=== PATIENT | male | born 1980 | race Caucasian/White ===

== ENCOUNTER 2020-08-01 11:52 | Inpatient (IN) | payer MEDICAID ==
[~2020-08-01] VITALS: Ht 182.9 cm; Wt 101.4 kg
[2020-08-01] MEDS ORDERED: acetaminophen 325mg tablet PO PRN (14:10)
[2020-08-01] MEDS ORDERED: magnesium hydroxide 30ml (MOM) UD suspension PO PRN (14:10)
[2020-08-01] MEDS ORDERED: mag hydrox/Alum hydrox/simeth 30ml oral suspension PO PRN (14:10)
[2020-08-01] MEDS ORDERED: loperamide 2mg capsule PO PRN (14:10)
[2020-08-01 15:00] VITALS: BP 137/83
[2020-08-01] MEDS ORDERED: CEPH-572 PO (15:40)
[2020-08-01] MEDS ORDERED: CLON-527 PO (15:40)
[2020-08-01] MEDS ORDERED: OLAN20TA3 PO (15:40)
[2020-08-01] MEDS ORDERED: BUPR150T8 PO (15:55)
--- NOTE | 2020-08-01 16:00 | NUR ---
Admission note: [facility] for DTS at 1555 from [facility]. Pt overdosed on Klonopin so that he could and not have to deal with things anymore. Pt complains of voices and audio hallucinations. Pt was traveling on his way to [place]. Pt has a history of schizophrenia, and fibromyalgia.
[2020-08-01] MEDS: LORazepam 1 MG tablet PO PRN (16:34)
[2020-08-01] MEDS: NICOTINE POLACRILEX 2 MG LOZENGE BC PRN ×2 (16:34→17:50)
--- NOTE | 2020-08-01 17:52 | NUR ---
Admit Update: Pt. was a direct admit from [facility] on a 5150 for DTS. Pt. brought to unit on gurney by EMS. Pt. is A&Ox4. Pt. reports SI with plan to jump in front of traffic. Pt. reports auditory hallucinations, voices that tell him Youre going to and we dont like you. Pt. reports for the past 2 weeks he has felt disoriented, anxious, suicidal, and has no hope in the world. Pt. reports he was attempting to get to [place] to go live with his sister when he had a mental breakdown. Pt. reports that 6 months ago he had a suicide attempt when he overdosed on Naproxyn and Benadryl. Pt. treated at [facility]. Pt. reports pain from Fibromyalgia 01/23 and requests Hydrocodone. When completing med rec, Hydrocodone could not be verified. Pt. given Motrin 800mg instead. Pt. is irritable during interview but cooperative.
[2020-08-01] MEDS: ibuprofen tablet 400 MG TABLET PO PRN (17:58)
[2020-08-01 19:45] VITALS: BP 109/62
[2020-08-01] MEDS: clonazePAM 1mg tablet PO SCH (21:27)
[2020-08-01] MEDS: cephalexin 500mg capsule PO SCH (21:27)
--- NOTE | 2020-08-01 21:45 | NUR ---
Nursing Progress Note: Legal hold: 5150 Client on involuntary status for DTS Report received from nurse with use of SBAR Why are they here:[facility] on [facility]150 for DTS at 1555 from [facility]. Pt overdosed on Klonopin so that he could and not have to deal with things anymore. Pt complains of voices and audio hallucinations. Pt was traveling on his way to [facility]. Pt has a history of schizophrenia, and fibromyalgia. Pt. reports SI with plan to jump in front of traffic. Pt. reports auditory hallucinations, voices that tell him Youre going to and we dont like you. Pt. reports for the past 2 weeks he has felt disoriented, anxious, suicidal, and has no hope in the world. Pt. reports he was attempting to get to [place] to go live with his sister when he had a mental breakdown. Pt. reports that 6 months ago he had a suicide attempt when he overdosed on Naproxyn and Benadryl. Pt. treated at [facility]. Pt. reports pain from Fibromyalgia 5/10 and requests Hydrocodone. When completing med rec, Hydrocodone could not be verified. Pt. given Motrin 800mg instead. Pt. is irritable during interview but cooperative. Assessment What has happened this shift: Pt was sleeping in bed at change of shift, he is difficult to wake and is very sleepy. Pt is unable to have a conversation without falling back to sleep. Vitals WNL. Pt woke to take evening meds but falls back asleep. Pt states his pain is 0/10. S/I, H/I: denies A/VH: denies Sleep: pt is sleeping see sleep hours ADL's: independent Group attendance: no evening groups Were meds taken: yes Any med S/E Pt is fatigued Mental Status Exam Appearance: adequately groomed, and dressed in personal clothing Eye contact: good Behavior: sleeping Speech: normal rate and rhythm Mood: unable to assess, pt is sleeping Affect: unable to assess pt is sleeping Thought process: LAVERN pt is sleeping Thought Content: LAVERN pt is sleeping Cognition: a/o x4 Insight: LAVERN Judgment: LAVERN Interventions PRN's used: none Therapeutic interventions: Introduced self and established rapport, maintained a safe and supportive environment, ensured contract for safety, provided active listening and positive encouragement, encouraged participation on the unit, spoke with pt.s mom with pt.s consent, and maintained Q 15min safety checks. Restraints/seclusion/emergency medication: None Justification of Continued Inpatient Treatment: Pt. requires interruption of current crisis, medication adjustments, and a safe and supportive environment.
[2020-08-02] MEDS: cephalexin 500mg capsule PO SCH ×4 (07:47→20:29)
[2020-08-02] MEDS: clonazePAM 1mg tablet PO SCH ×2 (07:47→20:29)
[2020-08-02] MEDS: buPROPion SR 150mg tablet PO SCH (07:47)
[2020-08-02] MEDS: NICOTINE POLACRILEX 2 MG LOZENGE BC PRN ×5 (07:48→17:45)
[2020-08-02] MEDS: ibuprofen tablet 400 MG TABLET PO PRN ×2 (07:48→19:01)
[2020-08-02] MEDS: nicotine 21mg patch - 24 hr TD SCH (07:48)
[2020-08-02] MEDS ORDERED: olanzapine 10mg tablet PO SCH (08:00)
[2020-08-02 08:31] VITALS: BP 115/80
[2020-08-02 10:11] LABS: HEMOGLOBIN A1C 5.5 % (4.5-6.2)
[2020-08-02 10:17] LABS: CHOL/HDL RATIO 3.6 (0.00-4.99); CHOLESTEROL 135 MG/DL (0-200); HDL CHOLESTEROL 37 MG/DL (35-60); LDL CHOLESTEROL 72 MG/DL (50-100); TRIGLYCERIDES 152 MG/DL (20-135)
[2020-08-02] MEDS ORDERED: lurasidone 20mg tablet PO ONE (12:55)
[2020-08-02] MEDS ORDERED: HYDROcodone/acetaminophen 5mg/325mg tablet PO ONE (13:00)
[2020-08-02] MEDS: LORazepam 1 MG tablet PO PRN (14:51)
[2020-08-02] MEDS ORDERED: HYDROcodone/acetaminophen 7.5MG/325MG per 15ml UD CUP PO SCH (15:00)
--- NOTE | 2020-08-02 15:04 | NUR ---
Nursing Progress Note: Legal hold: 515 Client on involuntary status for DTS Report received from nurse with use of SBAR: MEL Lund Why are they here: [facility] on 5150 for DTS at 1555 from [facility]. Pt overdosed on Klonopin so that he could and not have to deal with things anymore. Pt complains of voices and audio hallucinations. Pt was traveling on his way to [facility]. Pt has a history of schizophrenia, and fibromyalgia. Assessment What has happened this shift: Received pt. sleeping in bed at the beginning of the shift, he awoke and requested pain medication for chronic generalized pain, 04/25, PRN Motrin administered with some effectiveness. Pt. was compliant with all AM medications, and then attended breakfast in the Group Room. 1:1 completed later at bedside, pt. presents as cooperative, fatigued, anxious, guarded, and withdrawn. He denies any S/I or H/I, however admits to ongoing depression and anxiety. Pt. also endorses ongoing A/BRYANT which are sometimes command in nature, he states, "They say negative things to me." He denies any V/BRYANT. When questioned by this senior medical writer regarding any thoughts that others want to hurt him, pt. agreed to paranoid thoughts that random others do want to hurt him. Pt. remains guarded throughout the shift and mostly isolates in his room, napping intermittently. This senior medical writer called [facility] to obtain previous urine culture results per Dr. Holguin to identify why pt. is currently taking Keflex. Urine culture results reported from MEL Harrell, and showed mixed growth present, there was no antibiotic susceptibility completed. Endorsed to Dr. Holguin and pt. who reports understanding and will continue Keflex. S/I, H/I: Denies A/VH: Ongoing A/BRYANT, some are command Sleep: Pt. reports he slept well, sleep hours are 9.25 ADL's: Independent Group attendance: No Were meds taken: Yes Any med S/E: None Mental Status Exam Appearance: Neat and appropriately dressed Eye contact: Fair Behavior: Cooperative, fatigued, anxious, guarded, and withdrawn Speech: WNL Mood: Guarded and anxious Affect: Constricted Thought process: Poverty to thought Thought Content: A/BRYANT and paranoid delusions Cognition: A&O X4 Insight: Poor Judgment: Poor Interventions PRN's used: Motrin, Ativan, and Nicotine Lozenge Therapeutic interventions: Introduced self and established rapport, ensured contract for safety, maintained a safe and supportive environment, provided clear and simple instructions, attempted to orient to reality, called [facility] to obtain urine culture results per MD, and maintained Q 15min safety checks. Restraints/seclusion/emergency medication: N/A Justification of Continued Inpatient Treatment: Pt. requires interruption of current crisis, medication adjustments, and a safe and supportive environment.
[2020-08-02 19:41] VITALS: BP 110/73
[2020-08-02] MEDS: olanzapine 10mg tablet PO SCH (20:29)
[2020-08-02] MEDS: HYDROcodone/acetaminophen 7.5MG/325MG per 15ml UD CUP PO SCH (20:29)
--- NOTE | 2020-08-02 21:56 | NUR ---
Nursing Progress Note: Legal hold: 515 Client on involuntary status for DTS Report received from nurse with use of SBAR: MEL Steele Why are they here: [facility] on [facility]150 for DTS at 1555 from [facility]. Pt overdosed on Klonopin so that he could and not have to deal with things anymore. Pt complains of voices and audio hallucinations. Pt was traveling on his way to [facility]. Pt has a history of schizophrenia, and fibromyalgia. Assessment What has happened this shift:Pt was in the rec room briefly at change of shift. He approached the nurses station and asked if he could have meds early. Explained he could have meds at scheduled time but not early. Pt is understanding and c/o 7/10 pain. Pt was given motrin and went to his room to sleep. Pt states his day was ok, he laughs when asked if he remembers talking with me last night because he doesn't. Pt reports his pain remains at a 7/10 at med pass. Pt is med compliant remains sleeping in bed for the night. S/I, H/I: Denies A/VH: Ongoing A/BRYANT, some are command Sleep: see sleep hours ADL's: Independent Group attendance: No Were meds taken: Yes Any med S/E: None Mental Status Exam Appearance: Neat and appropriately dressed Eye contact: Fair Behavior: Cooperative, fatigued, anxious, guarded, and withdrawn Speech: WNL Mood: Guarded and anxious Affect: Constricted Thought process: Poverty to thought Thought Content: A/BRYANT and paranoid delusions Cognition: A&O X4 Insight: Poor Judgment: Poor Interventions PRN's used: Motrin, Therapeutic interventions: Introduced self and established rapport, ensured contract for safety, maintained a safe and supportive environment, provided clear and simple instructions, attempted to orient to reality, called [facility] to obtain urine culture results per MD, and maintained Q 15min safety checks. Restraints/seclusion/emergency medication: N/A Justification of Continued Inpatient Treatment: Pt. requires interruption of current crisis, medication adjustments, and a safe and supportive environment.
[2020-08-03] MEDS: traZODone 50mg tablet PO PRN ×2 (00:30→20:13)
[2020-08-03] MEDS: NICOTINE POLACRILEX 2 MG LOZENGE BC PRN ×8 (00:30→20:13)
[2020-08-03] MEDS: cephalexin 500mg capsule PO SCH ×4 (07:17→20:13)
[2020-08-03] MEDS: clonazePAM 1mg tablet PO SCH ×2 (07:17→19:03)
[2020-08-03] MEDS: lurasidone 20mg tablet PO SCH (07:17)
[2020-08-03] MEDS: buPROPion SR 150mg tablet PO SCH (07:17)
[2020-08-03] MEDS: HYDROcodone/acetaminophen 7.5MG/325MG per 15ml UD CUP PO SCH ×2 (07:19→19:03)
[2020-08-03] MEDS: nicotine 21mg patch - 24 hr TD SCH (07:29)
[2020-08-03 07:55] VITALS: BP 117/70
[2020-08-03] MEDS: LORazepam 1 MG tablet PO PRN ×2 (09:51→17:15)
[2020-08-03] MEDS ORDERED: HYDROcodone/acetaminophen 7.5MG/325MG per 15ml UD CUP PO ONE (13:35)
--- NOTE | 2020-08-03 15:26 | NUR ---
Armond is a 40 y/o single male who was placed on 5150 in [facility] after he overdosed on klonopin in a suicide attempt. He had had several ER visits prior to the overdose, one in which he was given a 7 day supply of medications. Armond was traveling from [place] to [place], [place]. He had been staying with family in [place] and left due to family members having Covid. He was previously staying at a homeless care home in [place] which is where he plans to return to. He reported hearing voices "commotion, noise", having panic attacks, and feeling overwhelmed "with life" when he overdosed. He has a history of Paranoid Schizophrenia and history of hospitalizations. He has a history of suicide attempts via overdose, cutting, and shot himself in his calf. He reported he was previously connected with mental health services in [place] and had a payee there. He does not have access to his SSI money currently due to not having a payee. He plans on getting another payee. He would like to return to [place]. He believes he can still use his original bus ticket to [place]. He was irritable throughout the interaction. He stated he "does not feel right" and wants to get stable. He denied any current SI or HI. WINIFRED Lynn Addendum: 08/03/20 at 1528 by Eliana Shah SS Amended: Links added.
--- NOTE | 2020-08-03 17:56 | NUR ---
Nursing Progress Note: Legal hold: 5150 Client on involuntary status for DTS Report received from nurse with use of SBAR: Ashely RN Why are they here: [facility] on 5150 for DTS at 1555 from [facility]. Pt overdosed on Klonopin so that he could and not have to deal with things anymore. Pt complains of voices and audio hallucinations. Pt was traveling on his way to [facility]. Pt has a history of schizophrenia, and fibromyalgia. Assessment What has happened this shift: Pt. awake at start of shift and requesting medications along with pain and anxiety PRNs. Pt. informed that his pain medication is scheduled now. Pt. received medications along with Ativan and went back to sleep. Pt. awoke for breakfast and went back to bed. Pt. denies SI, but continues to report AH telling him negative this. Pt. seen watching TV at times in Rec Room but mostly isolates to his room. Pt. does not attend group. Pt. asks for frequent PRNs and scheduled pain medications throughout the day. Pt. received Ativan 1mg po twice and had scheduled [place] changed to 1300 dose. S/I, H/I: Denies A/VH: Ongoing A/BRYANT telling him negative things. Sleep: Pt. napped intermittently throughout the day. ADL's: Independent Group attendance: No Were meds taken: Yes Any med S/E: Denies Mental Status Exam Appearance: Neat and appropriately dressed Eye contact: Fair Behavior: Cooperative, withdrawn, Isolates to room. Speech: WNL Mood: Depressed, anxious Affect: Flat Thought process: Poverty to thought Thought Content: Focused on pain and anxiety medications and Nicotine lozenges. Cognition: A&O X4 Insight: Poor Judgment: Poor Interventions PRN's used: Ativan, and Nicotine Lozenge Therapeutic interventions: Introduced self and established rapport, ensured contract for safety, maintained a safe and supportive environment, provided clear and simple instructions, attempted to orient to reality, called [facility] to obtain urine culture results per MD, and maintained Q 15min safety checks. Restraints/seclusion/emergency medication: N/A Justification of Continued Inpatient Treatment: Pt. requires interruption of current crisis, medication adjustments, and a safe and supportive environment.
[2020-08-03 19:42] VITALS: BP 121/68
[2020-08-03] MEDS: olanzapine 10mg tablet PO SCH (20:13)
--- NOTE | 2020-08-03 21:09 | NUR ---
Nursing Progress Note: Legal hold: 5150 Client on involuntary status for DTS Report received from nurse with use of SBAR: MEL Steele Why are they here: [facility] on [facility]150 for DTS at 1555 from [facility]. Pt overdosed on Klonopin so that he could and not have to deal with things anymore. Pt complains of voices and audio hallucinations. Pt was traveling on his way to [facility]. Pt has a history of schizophrenia, and fibromyalgia. Assessment What has happened this shift:Pt was awake at change of shift, requesting to have medications "early". Then stood at the nurses station window looking at me at 6:59 for 8pm meds. Explained schedule of meds and explained to patient that if he takes meds early they might not last till his next scheduled med, explained I can only give meds within the hour. Pt verbalizes understanding. Pt took meds, was up for snack and then returned to bed. S/I, H/I: Denies A/VH: Ongoing A/BRYANT telling him negative things. Sleep: see sleep hours ADL's: Independent Group attendance: No Were meds taken: Yes Any med S/E: Denies Mental Status Exam Appearance: Neat and appropriately dressed Eye contact: Fair Behavior: Cooperative, withdrawn, Isolates to room. Speech: WNL Mood: Depressed, anxious Affect: Flat Thought process: Poverty to thought Thought Content: Focused on pain and anxiety medications and Nicotine lozenges. Cognition: A&O X4 Insight: Poor Judgment: Poor Interventions PRN's used: nicotine lozenge, trazadone Therapeutic interventions: Introduced self and established rapport, ensured contract for safety, maintained a safe and supportive environment, provided clear and simple instructions, attempted to orient to reality, called [facility] to obtain urine culture results per MD, and maintained Q 15min safety checks. Restraints/seclusion/emergency medication: N/A Justification of Continued Inpatient Treatment: Pt. requires interruption of current crisis, medication adjustments, and a safe and supportive environment.
[2020-08-04] MEDS: clonazePAM 1mg tablet PO SCH ×2 (07:09→19:07)
[2020-08-04] MEDS: lurasidone 20mg tablet PO SCH (07:10)
[2020-08-04] MEDS: cephalexin 500mg capsule PO SCH ×4 (07:10→19:59)
[2020-08-04] MEDS: buPROPion SR 150mg tablet PO SCH (07:10)
[2020-08-04] MEDS: HYDROcodone/acetaminophen 7.5MG/325MG per 15ml UD CUP PO SCH ×3 (07:10→19:08)
[2020-08-04 07:35] VITALS: BP 105/68
[2020-08-04] MEDS: nicotine 21mg patch - 24 hr TD SCH (08:00)
[2020-08-04] MEDS: NICOTINE POLACRILEX 2 MG LOZENGE BC PRN ×7 (08:05→17:09)
[2020-08-04] MEDS: LORazepam 1 MG tablet PO PRN ×2 (09:34→16:11)
--- NOTE | 2020-08-04 10:00 | NUR ---
Group Therapy: Process Group This Clinicians goals for this process group were as follows: (1) Ask scaling questions about Patients current anxiety, depression, and irritability symptoms as a check-in. (2) Share with patients psychoeducation about personal boundariesrigid, porous, and healthy. (3) Share psychoeducation on different types of personal boundariesphysical, intellectual, emotional, sexual, material, timeand discuss Rights of assertive individuals. (4) Engage Patients in discussion of the topics discussed within the group milieu. Patient identified experiencing the following levels of anxiety, depression, and anger/irritability while present in the group milieu (0-low; 10-High). Anxiety: 03/25 Depression: 12/24 Anger/irritability: 02/23 Patient presented as properly oriented x4 during the process group. Patient was dressed in nondescript, personal clothing that were appropriate within the milieu. This Clinician observed that Patient had a facial tattoo underneath one of his eyes and had some tattoos on his knuckles. Psychomotor activity was unremarkable. Patient's thought content was clear, and concrete. Patient's thought process was clear, coherent, and linear. Patient reported that he was hearing voices during the process group. This Clinician did observe Patient apparently responding quietly to the voices on a few occasions. The rate, latency, and tone of Patients speech was within normal limits. Patients speech was clear, and understandable. Patient maintained intermittent eye contact with this Clinician. Patient presented in calm euthymic mood, with congruent affect during the process group. Patient presented as cooperative, verbally engaged when addressed, and nonobtrusive within the group milieu. This Clinician greeted Patient as it was his first time in the group milieu with this Clinician. Patient reported experiencing high symptoms of anxiety, and anger/irritability and reported that he was feeling anxious and had tension in his chest. Patient did not participate in a substantial way during the discussion on personal boundaries. He exited the group milieu on a couple of occasions, but returned those times. Approximately 20 minutes into the process group, Patient quietly left for the last time and did not return. Barak Klein MA, TRANSPORTATION DIRECTOR Addendum: 08/05/20 at 0814 by Barak GROSS Amended: Links added.
[2020-08-04] MEDS ORDERED: lurasidone 20mg tablet PO ONE (11:00)
[2020-08-04] MEDS ORDERED: LORazepam 1 MG tablet PO ONE (11:05)
[2020-08-04] MEDS ORDERED: olanzapine 10mg tablet PO ONE (15:35)
[2020-08-04] MEDS: ibuprofen tablet 400 MG TABLET PO PRN (17:09)
--- NOTE | 2020-08-04 17:52 | NUR ---
Nursing Progress Note: Legal hold: 5150 Client on involuntary status for DTS Report received from nurse with use of SBAR: MEL Lund Why are they here: [facility] on [facility]150 for DTS at 1555 from [facility]. Pt. overdosed on Klonopin so that he could and not have to deal with thin.gs anymore. Pt complains of voices and audio hallucinations. Pt was traveling on his way to [facility]. Pt has a history of schizophrenia, and fibromyalgia. Assessment What has happened this shift: Pt. awake at start of shift and requesting medications. Pt. informed that he cannot get his medication until 7am. Pt. came back at 0650 requesting medication again. Pt. again told to wait until 0700. Pt. received medications at 0700 and then went back to bed. Pt. awake for breakfast and then went back to sleep. Pt. awoke later in the AM. 1:1 done at bedside. Pt. reports feeling less anxious today, and denies SI/HI, but reports +AH, pt. reports that the voices just sound like noise. Pt. is guarded and does not disclose much of what he is feeling. Pt. went to group but left shortly after it started, talking loudly to himself. When RN asked pt. what was wrong pt. reported hearing voices that were negative, but did not want to talk about it. RN received order for PRN medication and pt. received order for now dose for Latuda 40mg and Ativan 1mg with good effect. Pt. again c/o hearing voices in the afternoon. Pt. requested PRN. RN received now dose order for Zyprexa 10mg with moderate effect. Shortly after pt. requested Ativan PRN 1mg for anxiety and received with good effect. Pt. requested PRN nicotine lozenges every two hours. Pt. c/o of generalized pain and given Motrin 800mg po in the evening. S/I, H/I: Denies A/VH: Ongoing Auditory hallucinations that present as noise. Sleep: Pt. napped intermittently throughout the day. ADL's: Independent Group attendance: Pt. attempted to but became agitated and left group due to voices. Were meds taken: Yes Any med S/E: Denies Mental Status Exam Appearance: Neat and appropriately dressed Eye contact: Fair Behavior: Cooperative, withdrawn, Isolates to room. Speech: WNL Mood: Depressed, anxious Affect: Flat Thought process: Poverty to thought Thought Content: Focused on pain and anxiety medications and Nicotine lozenges. Cognition: A&O X4 Insight: Poor Judgment: Poor Interventions PRN's used: Ativanx3, Motrin x1, and Nicotine Lozenges Therapeutic interventions: Introduced self and established rapport, ensured contract for safety, maintained a safe and supportive environment, provided clear and simple instructions, attempted to orient to reality, called [facility] to obtain urine culture results per MD, and maintained Q 15min safety checks. Restraints/seclusion/emergency medication: N/A Justification of Continued Inpatient Treatment: Pt. requires interruption of current crisis, medication adjustments, and a safe and supportive environment.
[2020-08-04 19:23] VITALS: BP 114/68
[2020-08-04] MEDS: traZODone 50mg tablet PO PRN (19:59)
[2020-08-04] MEDS: olanzapine 10mg tablet PO SCH (19:59)
--- NOTE | 2020-08-05 00:18 | NUR ---
Nursing Progress Note Legal hold: Voluntary Report received from Debra LEAL with use of SBAR Why are they here: [facility] for DTS at 1555 from [facility]. Pt overdosed on Klonopin so that he could and not have to deal with things anymore. Pt complains of voices and audio hallucinations. Pt was traveling on his way to [facility]. Pt has a history of schizophrenia, and fibromyalgia. Assessment Assessment What has happened this shift: The patient was sleeping on his bed the entire evening and only got up briefly for the evening snack. He was cooperative but minimal during the evening assessment. He was complaining of generalized pain 7/10 and requested his pain medication. His affect was blunted and eye contact was intermittent. He denies thoughts to harm himself and others. He denied having voices this evening but did endorse mild paranoia. He discharge plan to is to travel to his sister's home. He denies medication side effects and is medication compliant. He was agreeable to sign in voluntary. He was adequately groomed and dressed. When asked how his mood was he stated that it was "fair" He was alert and oriented. His replies were logical and appropriate although minimal and vague. Insight and judgement were fair. Justification of Continued Inpatient Treatment: The patient continues with medication stabilization. He is requesting PRN medication for sleep. Was bothered by voices earlier in the day.
[2020-08-05] MEDS: HYDROcodone/acetaminophen 7.5MG/325MG per 15ml UD CUP PO SCH ×3 (07:14→19:00)
[2020-08-05] MEDS: nicotine 21mg patch - 24 hr TD SCH (07:14)
[2020-08-05] MEDS: lurasidone 60mg tablet PO SCH (07:15)
[2020-08-05] MEDS: clonazePAM 1mg tablet PO SCH ×2 (07:15→19:00)
[2020-08-05] MEDS: buPROPion SR 150mg tablet PO SCH (07:15)
[2020-08-05] MEDS: cephalexin 500mg capsule PO SCH ×4 (07:15→20:07)
[2020-08-05] MEDS: NICOTINE POLACRILEX 2 MG LOZENGE BC PRN ×7 (07:15→19:00)
[2020-08-05 08:00] VITALS: BP 119/67
--- NOTE | 2020-08-05 11:41 | NUR ---
Initial: Pt admit with depression. Currently eating well documented with 75-100% PO intake on regular diet. LBM 08/04. No documented edema or wounds. No nutrition diagnosis at this time. Will continue to follow. Recommendations: 1) Continue regular diet 2) Bowel care per rx 3) Scaled weights per rx Addendum: 08/05/20 at [address] Amended: Links added.
[2020-08-05] MEDS: LORazepam 1 MG tablet PO PRN (14:26)
--- NOTE | 2020-08-05 16:00 | NUR ---
Nursing Progress Note: Legal hold: VOL Client on involuntary status for DTS Report received from nurse, DIDIER Pinedo with use of SBAR Why are they here: [facility] for DTS at 1555 from [facility]. Pt overdosed on Klonopin so that he could and not have to deal with things anymore. Pt complains of voices and audio hallucinations. Pt was traveling on his way to [facility]. Pt has a history of schizophrenia, and fibromyalgia. Assessment What has happened this shift: Pt up on the unit pacing or sitting in the recreation room. Pt spends the day requesting PRN Nicotine Lozenges, Ativan or requesting his prescribed medications an hour earlier then scheduled. Pt is heard numerous times throughout the day talking loudly and answering self while sitting in a room alone. S/I, H/I: Denies A/VH: Ongoing A/BRYANT, some are command Sleep: Does not nap in the daytime ADL's: Independent Group attendance: No Were Meds taken: Yes Any med S/E: None Mental Status Exam Appearance: Neat and appropriately dressed Eye contact: Fair Behavior: Cooperative, anxious, guarded, and withdrawn Speech: WNL Mood: Guarded, paranoid Affect: Constricted Thought process: Poverty to thought Thought Content: A/BRYANT and paranoid delusions Cognition: A&O X4 Insight: Poor Judgment: Poor Interventions PRN's used: Ativan, and Nicotine Lozenge Therapeutic interventions: provided therapeutic communication with active listening, medication administration/education/monitoring, encouraged pt to discuss "voices" with his doctor, maintained Q 15min safety checks. Restraints/seclusion/emergency medication: N/A Justification of Continued Inpatient Treatment: Pt. requires interruption of current crisis, medication adjustments, and a safe and supportive environment.
[2020-08-05 19:00] VITALS: BP 120/80
[2020-08-05] MEDS: traZODone 50mg tablet PO PRN (20:07)
[2020-08-05] MEDS: olanzapine 10mg tablet PO SCH (20:07)
--- NOTE | 2020-08-05 23:20 | NUR ---
Nursing Progress Note: Legal hold: Vol Client on involuntary status for DTS Report received from nurse with use of SBAR: Debra RN Why are they here: [facility] on 5150 for DTS at 1555 from [facility]. Pt. overdosed on Klonopin so that he could and not have to deal with thin.gs anymore. Pt complains of voices and audio hallucinations. Pt was traveling on his way to [facility]. Pt has a history of schizophrenia, and fibromyalgia. Assessment What has happened this shift: Pt was sleeping at shift change but awoke shortly after to request his pain meds early. Pt given norco at 1900. Pt denied any complaints other than having bone pain. Pt endorses voices, stating they are always there. Pt watched tv briefly in the rec room before going back to bed. S/I, H/I: Denies A/VH: Ongoing Auditory hallucinations that are always there Sleep: see sleep assessment ADL's: Independent Group attendance: n/a Were meds taken: Yes Any med S/E: Denies Mental Status Exam Appearance: Neat and appropriately dressed Eye contact: Fair Behavior: Cooperative, withdrawn, Isolates to room. Speech: WNL Mood: Depressed Affect: Flat Thought process: Poverty to thought Thought Content: Focused on pain and anxiety medications and Nicotine lozenges. Cognition: A&O X4 Insight: Poor Judgment: Poor Interventions PRN's used: Nicotine Lozenges, trazadone Therapeutic interventions: Introduced self and established rapport, ensured contract for safety, maintained a safe and supportive environment, provided clear and simple instructions, attempted to orient to reality, and maintained Q 15min safety checks. Restraints/seclusion/emergency medication: N/A Justification of Continued Inpatient Treatment: Pt. requires interruption of current crisis, medication adjustments, and a safe and supportive environment.
[2020-08-06] MEDS: NICOTINE POLACRILEX 2 MG LOZENGE BC PRN ×6 (05:52→17:53)
[2020-08-06] MEDS: nicotine 21mg patch - 24 hr TD SCH (07:37)
[2020-08-06] MEDS: lurasidone 60mg tablet PO SCH (07:37)
[2020-08-06] MEDS: HYDROcodone/acetaminophen 7.5MG/325MG per 15ml UD CUP PO SCH ×3 (07:38→19:02)
[2020-08-06] MEDS: cephalexin 500mg capsule PO SCH ×4 (07:38→20:11)
[2020-08-06] MEDS: buPROPion SR 150mg tablet PO SCH (07:38)
[2020-08-06] MEDS: clonazePAM 1mg tablet PO SCH ×2 (07:38→19:02)
[2020-08-06 07:54] VITALS: BP 124/76
[2020-08-06] MEDS: LORazepam 1 MG tablet PO PRN ×2 (11:04→17:53)
[2020-08-06] MEDS: lurasidone 20mg tablet PO PRN (16:42)
--- NOTE | 2020-08-06 17:28 | NUR ---
Nursing Progress Note: Legal hold: VOL Client on involuntary status for DTS Report received from nurse, DIDIER Pinedo with use of SBAR Why are they here: [facility] on 5150 for DTS at 1555 from [facility]. Pt overdosed on Klonopin so that he could and not have to deal with things anymore. Pt complains of voices and audio hallucinations. Pt was traveling on his way to [facility]. Pt has a history of schizophrenia, and fibromyalgia. Assessment What has happened this shift: Pt is observed pacing and up on the unit throughout the day. He continues to request PRN's at least q 2 hours. This morning he was heard in the recreation room talking aloud when no one was in the room. This nurse asked him if he was "hearing voices." Pt said, "there are a lot of them and they always say negative stuff like we're going to kill you." Then later was heard saying "we got to get out of here, no you get out of here." Consult with Dr. Holguin. Latuda 40mg PRN agitation/voices was added to his list of medications. S/I, H/I: Denies A/VH: Yes, A/H that are neg. telling him they are going to kill him Sleep: Does not nap in the daytime ADL's: Independent Group attendance: No Were Meds taken: Yes Any med S/E: None Mental Status Exam Appearance: Neat and appropriately dressed Eye contact: Fair Behavior: Cooperative, anxious, guarded, and withdrawn Speech: WNL Mood: Guarded, paranoid Affect: Constricted Thought process: Poverty to thought Thought Content: A/BRYANT and paranoid delusions Cognition: A&O X4 Insight: Poor Judgment: Poor Interventions PRN's used: Ativan, and Nicotine Lozenge Therapeutic interventions: provided therapeutic communication with active listening, medication administration/education/monitoring, encouraged pt to discuss "voices" with his doctor, maintained Q 15min safety checks. Restraints/seclusion/emergency medication: N/A Justification of Continued Inpatient Treatment: Pt. requires interruption of current crisis, medication adjustments, and a safe and supportive environment.
[2020-08-06 19:00] VITALS: BP 98/64
[2020-08-06] MEDS: olanzapine 10mg tablet PO SCH (20:11)
--- NOTE | 2020-08-06 23:46 | NUR ---
Nursing Progress Note: Legal hold: Vol Client on voluntary status for DTS Report received from nurse with use of SBAR: MEL Richardson Why are they here: [facility] on 5150 for DTS at 1555 from [facility]. Pt. overdosed on Klonopin so that he could and not have to deal with thin.gs anymore. Pt complains of voices and audio hallucinations. Pt was traveling on his way to [facility]. Pt has a history of schizophrenia, and fibromyalgia. Assessment What has happened this shift: Pt continues to isolate to his room during the evening shift. Pt was only seen out of his room a couple of times and for just a few minutes each time. pt continues to have auditory hallucinations but denies being suicidal. Pt states that the voices "aren't bad today." Pt did not make any delusional statements and was not seen responding to IS. S/I, H/I: Denies A/VH: Ongoing Auditory hallucinations that are always there Sleep: see sleep assessment ADL's: Independent Group attendance: n/a Were meds taken: Yes Any med S/E: Denies Mental Status Exam Appearance: Neat and appropriately dressed Eye contact: Fair Behavior: Cooperative, withdrawn, Isolates to room. Speech: WNL Mood: Depressed Affect: Flat Thought process: Poverty to thought Thought Content: unable to assess Cognition: A&O X4 Insight: Poor Judgment: Poor Interventions PRN's used: trazadone Therapeutic interventions: Introduced self and established rapport, ensured contract for safety, maintained a safe and supportive environment, provided clear and simple instructions, attempted to orient to reality, and maintained Q 15min safety checks. Restraints/seclusion/emergency medication: N/A Justification of Continued Inpatient Treatment: Pt. requires interruption of current crisis, medication adjustments, and a safe and supportive environment.
[2020-08-07 07:30] VITALS: BP_SYST 102; BP_SYST 81; BP_DIAS 53; BP_DIAS 69
[2020-08-07] MEDS: clonazePAM 1mg tablet PO SCH ×2 (07:32→19:07)
[2020-08-07] MEDS: buPROPion SR 150mg tablet PO SCH (07:32)
[2020-08-07] MEDS: lurasidone 60mg tablet PO SCH (07:32)
[2020-08-07] MEDS: cephalexin 500mg capsule PO SCH ×4 (07:32→20:00)
[2020-08-07] MEDS: nicotine 21mg patch - 24 hr TD SCH (07:32)
[2020-08-07] MEDS: HYDROcodone/acetaminophen 7.5MG/325MG per 15ml UD CUP PO SCH ×3 (07:33→19:07)
[2020-08-07] MEDS: NICOTINE POLACRILEX 2 MG LOZENGE BC PRN ×5 (07:33→17:44)
[2020-08-07] MEDS: LORazepam 1 MG tablet PO PRN ×2 (08:59→15:10)
[2020-08-07] MEDS: lurasidone 20mg tablet PO PRN (08:59)
[2020-08-07] MEDS ORDERED: buPROPion SR 150mg tablet PO ONE (14:10)
--- NOTE | 2020-08-07 15:46 | NUR ---
Nursing Progress Note: Legal hold: VOL Client on involuntary status for DTS Report received from nurse, DIDIER Pinedo with use of SBAR Why are they here: [facility] on 5150 for DTS at 1555 from [facility]. Pt overdosed on Klonopin so that he could and not have to deal with things anymore. Pt complains of voices and audio hallucinations. Pt was traveling on his way to [facility]. Pt has a history of schizophrenia, and fibromyalgia. Assessment What has happened this shift: Pt slept more this shift. He reports the Latuda is helping to decrease his A/H. Pt was heard yelling at his voices in the Recreation Room. When this nurse asked him what he was hearing he shared, "they just keep telling me they are going to kill me, they call me names and say negative things about me." S/I, H/I: Denies A/VH: Yes, A/H that are neg. telling him they are going to kill him Sleep: Napped in the AM ADL's: Independent Group attendance: No Were Meds taken: Yes Any med S/E: None Mental Status Exam Appearance: Neat and appropriately dressed Eye contact: Fair Behavior: Cooperative, anxious, guarded, and withdrawn Speech: WNL Mood: Guarded, paranoid Affect: Constricted Thought process: Poverty to thought Thought Content: A/BRYANT and paranoid delusions Cognition: A&O X4 Insight: Poor Judgment: Poor Interventions PRN's used: Ativan, and Nicotine Lozenge Therapeutic interventions: provided therapeutic communication with active listening, medication administration/education/monitoring, encouraged pt to discuss "voices" with his doctor, maintained Q 15min safety checks. Restraints/seclusion/emergency medication: N/A Justification of Continued Inpatient Treatment: Pt. requires interruption of current crisis, medication adjustments, and a safe and supportive environment.
[2020-08-07] MEDS: traZODone 50mg tablet PO PRN (20:00)
[2020-08-07] MEDS: olanzapine 10mg tablet PO SCH (20:00)
[2020-08-07 20:50] VITALS: BP 103/61
--- NOTE | 2020-08-08 00:47 | NUR ---
Nursing Progress Note: Legal hold: Vol Client on voluntary status for DTS Report received from nurse with use of SBAR: MEL Steele Why are they here: [facility] on 5150 for DTS at 1555 from [facility]. Pt. overdosed on Klonopin so that he could and not have to deal with thin.gs anymore. Pt complains of voices and audio hallucinations. Pt was traveling on his way to [facility]. Pt has a history of schizophrenia, and fibromyalgia. Assessment What has happened this shift: Pt was lying in bed at change of shift but was easily to wake up. Pt is still endorsing voices and having generalized pain. Pt is friendly with assessments but does not want to discuss anything in detail. Pt mostly stayed in his room, only coming out for snacks and meds. Pt accepted hs meds without issue and did not have any behavior issues. Pt remained in his room for entire shift. S/I, H/I: Denies A/VH: Ongoing Auditory hallucinations that are always there Sleep: see sleep assessment ADL's: Independent Group attendance: n/a Were meds taken: Yes Any med S/E: Denies Mental Status Exam Appearance: Neat and appropriately dressed Eye contact: Fair Behavior: Cooperative, withdrawn, Isolates to room. Speech: WNL Mood: Depressed Affect: Flat Thought process: Poverty to thought Thought Content: unable to assess Cognition: A&O X4 Insight: Poor Judgment: Poor Interventions PRN's used: trazadone Therapeutic interventions: Introduced self and established rapport, ensured contract for safety, maintained a safe and supportive environment, provided clear and simple instructions, attempted to orient to reality, and maintained Q 15min safety checks. Restraints/seclusion/emergency medication: N/A Justification of Continued Inpatient Treatment: Pt. requires interruption of current crisis, medication adjustments, and a safe and supportive environment.
[2020-08-08] MEDS: ibuprofen tablet 400 MG TABLET PO PRN (02:10)
[2020-08-08] MEDS: NICOTINE POLACRILEX 2 MG LOZENGE BC PRN ×7 (02:10→17:22)
[2020-08-08] MEDS: LORazepam 1 MG tablet PO PRN ×2 (07:08→14:12)
[2020-08-08] MEDS: OLANZAPINE 5 MG TABLET PO PRN ×2 (07:09→17:54)
[2020-08-08] MEDS: nicotine 21mg patch - 24 hr TD SCH (07:31)
[2020-08-08] MEDS: HYDROcodone/acetaminophen 7.5MG/325MG per 15ml UD CUP PO SCH ×3 (07:31→19:00)
[2020-08-08] MEDS: cephalexin 500mg capsule PO SCH ×4 (07:32→20:00)
[2020-08-08] MEDS: buPROPion SR 150mg tablet PO SCH ×2 (07:32→12:46)
[2020-08-08] MEDS: clonazePAM 1mg tablet PO SCH ×2 (07:32→19:00)
[2020-08-08] MEDS: lurasidone 20mg tablet PO SCH (07:56)
[2020-08-08] MEDS: lurasidone 60mg tablet PO SCH (07:57)
[2020-08-08 08:00] VITALS: BP 120/70
--- NOTE | 2020-08-08 09:19 | NUR ---
Pt up at 0630 sitting in Rec. Rm talking loudly to himself some of his yelling and talking loudly difficult to interpret due to the calderón between the pt and this nurse. Later overheard pt saying, "if you don't give me my Vicodin he will hurt you." He was then heard yelling, "you better stop now." When asked by this nurse, "what is going on?" Pt stated, "I'm having tactile hallucinations, someone is touching me." Pt given Zyprexa 10mg and Ativan 1mg PO with minor relief. He was then given his AM medications between [id number]. Pt then laid down. Current VS 102/63, HR 75, O2 95%, T 98.7
--- NOTE | 2020-08-08 13:18 | NUR ---
Pt threw a sucker in the toilet when asked why he did that he said, "I felt like someone else was sucking on it with me."
--- NOTE | 2020-08-08 14:57 | NUR ---
DISCHARGE PLANNING Met with Armond with Dr Rankin to discuss discharge planning. Armond told Dr Rankin he is doing well despite needing multiple PRN's. He [facility] [place] where he plans on staying with his sister. Vacuum Drum Drier Operator expressed concern about him being on a bus for 24 hours and his ability to manage his symptoms. He reported he will be fine. He reported he plans on walking in at [facility] in [place] where he previously received mental health services. He is also familiar with the homeless [facility], [facility], in [place]. He agreed to stay another night in order for sql report writer to secure a bus ticket and obtain his medications prior to discharge. Received approval from [facility] for purchase of a [employer] bus ticket. Ticket was purchased and bus leaves 11:40 PM on 08/09/20. Vacuum Drum Drier Operator will nut picker meds from [facility] pharmacy prior to discharge so he will have them for the trip. WINIFRED Lynn
--- NOTE | 2020-08-08 15:46 | NUR ---
Nursing Progress Note: Legal hold: VOL Client on involuntary status for DTS Report received from nurse, DIDIER Pinedo with use of SBAR Why are they here: [facility] on 5150 for DTS at 1555 from [facility]. Pt overdosed on Klonopin so that he could and not have to deal with things anymore. Pt complains of voices and audio hallucinations. Pt was traveling on his way to [facility]. Pt has a history of schizophrenia, and fibromyalgia. Assessment What has happened this shift: Pt actively hallucinating for the first 8 hours of this shift. Pt given PRN Zyprexa and Ativan in the AM due to tactile and auditory hallucinations per his report and this nurses and other staff observation. Pt then took his AM medications and slept for a few hours. Pt then got up and was heard RIS loudly, again, in the Rec. Rm he was given his 1300 medications with a nicotine lozenge and then he laid down and went to sleep. Pt reports upon discharge he will go to his sisters house where his six year old nephew lives. He agrees actively hallucinating could upset his nephew. S/I, H/I: Denies A/VH: Yes, experiencing both tactile and auditory hallucinations. Sleep: Napped briefly in both the am and afternoon after lunch ADL's: Independent Group attendance: No Were Meds taken: Yes Any med S/E: None Mental Status Exam Appearance: Same clothes for the past three days; not showering Eye contact: Fair Behavior: Cooperative, anxious, guarded, and withdrawn Speech: WNL Mood: Guarded, paranoid Affect: Constricted Thought process: Poverty to thought Thought Content: A/BRYANT and paranoid delusions Cognition: A&O X4 Insight: Poor Judgment: Poor Interventions PRN's used: Ativan, and Nicotine Lozenge Therapeutic interventions: provided therapeutic communication with active listening, medication administration/education/monitoring, encouraged pt to discuss "voices" with his doctor, maintained Q 15min safety checks. Restraints/seclusion/emergency medication: N/A Justification of Continued Inpatient Treatment: Pt. requires interruption of current crisis, medication adjustments, and a safe and supportive environment.
[2020-08-08] MEDS ORDERED: OLAN20TA3 PO (17:34)
[2020-08-08] MEDS ORDERED: LURA80TA3 PO (17:34)
[2020-08-08] MEDS ORDERED: TRAZ-251 PO (17:34)
[2020-08-08] MEDS ORDERED: BUPR150T8 PO (17:34)
[2020-08-08] MEDS ORDERED: OLAN10TA19 PO (17:34)
[2020-08-08] MEDS ORDERED: HYDR-89 PO (17:34)
[2020-08-08] MEDS ORDERED: CLON-527 PO (17:34)
[2020-08-08] MEDS: olanzapine 10mg tablet PO SCH (20:00)
[2020-08-08] MEDS: traZODone 50mg tablet PO PRN (20:00)
[2020-08-08 20:18] VITALS: BP 110/75
--- NOTE | 2020-08-09 00:23 | NUR ---
Nursing Progress Note: Legal hold: Vol Client on voluntary status for DTS Report received from nurse with use of SBAR: MEL Steele Why are they here: [facility] on 5150 for DTS at 1555 from [facility]. Pt. overdosed on Klonopin so that he could and not have to deal with thin.gs anymore. Pt complains of voices and audio hallucinations. Pt was traveling on his way to [facility]. Pt has a history of schizophrenia, and fibromyalgia. Assessment What has happened this shift: Pt was lying in bed at shift change. Pt continues to endorse auditory hallucinations and was seen at several times talking to someone that was not there. Pt also complains of bone pain. Pt requested hs meds early again. Pt did not have any behavior issues. S/I, H/I: Denies A/VH: Ongoing Auditory hallucinations that are always there Sleep: see sleep assessment ADL's: Independent Group attendance: n/a Were meds taken: Yes Any med S/E: Denies Mental Status Exam Appearance: Neat and appropriately dressed Eye contact: Fair Behavior: Cooperative, withdrawn, Isolates to room. Speech: WNL Mood: Depressed Affect: Flat Thought process: Poverty to thought Thought Content: unable to assess Cognition: A&O X4 Insight: Poor Judgment: Poor Interventions PRN's used: trazadone Therapeutic interventions: Introduced self and established rapport, ensured contract for safety, maintained a safe and supportive environment, provided clear and simple instructions, attempted to orient to reality, and maintained Q 15min safety checks. Restraints/seclusion/emergency medication: N/A Justification of Continued Inpatient Treatment: Pt. requires interruption of current crisis, medication adjustments, and a safe and supportive environment.
[2020-08-09] MEDS: NICOTINE POLACRILEX 2 MG LOZENGE BC PRN ×8 (01:07→20:00)
[2020-08-09] MEDS: LORazepam 1 MG tablet PO PRN ×3 (01:07→15:15)
[2020-08-09] MEDS: acetaminophen 325mg tablet PO PRN ×2 (05:30→17:10)
[2020-08-09 07:00] VITALS: BP 118/74
[2020-08-09] MEDS: lurasidone 60mg tablet PO SCH (07:19)
[2020-08-09] MEDS: cephalexin 500mg capsule PO SCH ×4 (07:20→20:00)
[2020-08-09] MEDS: clonazePAM 1mg tablet PO SCH ×2 (07:20→20:00)
[2020-08-09] MEDS: nicotine 21mg patch - 24 hr TD SCH (07:20)
[2020-08-09] MEDS: buPROPion SR 150mg tablet PO SCH ×2 (07:20→12:19)
[2020-08-09] MEDS: lurasidone 20mg tablet PO SCH (07:20)
[2020-08-09] MEDS: HYDROcodone/acetaminophen 7.5MG/325MG per 15ml UD CUP PO SCH ×3 (07:21→20:19)
[2020-08-09] MEDS: OLANZAPINE 5 MG TABLET PO PRN (10:50)
--- NOTE | 2020-08-09 11:23 | NUR ---
D/C PLAN: DISCHARGE AT 11 PM FOR 11:40 [employer] Armond has a [employer] bus ticket to go to [place], [place]. Bus boards at 11:20 PM tonight and leaves at 11:40 PM. Testing And Regulating Technician informed him he will be able to discharge shortly before his bus leaves to ensure he makes it on the bus as [facility] purchased the ticket. Picked up his meds from [facility]. Armond gave teletypewriter installer $20 to pay the $12 co-pay for [facility]. Returned $8 to his envelope of money and returned it to the safe along with the receipt. Armond plans on staying with his sister in [place] and he is familiar with the senior care there. He reported he plans on walking in at [facility] to start services there again. WINIFRED Lynn
[2020-08-09] MEDS: ibuprofen tablet 400 MG TABLET PO PRN (15:15)
--- NOTE | 2020-08-09 17:05 | NUR ---
Nursing Progress Note: Legal hold: VOL Report received from nurse, DIDIER Lund with use of SBAR Why are they here: [facility] on 5150 for DTS at 1555 from [facility]. Pt overdosed on Klonopin so that he could and not have to deal with things anymore. Pt complains of voices and audio hallucinations. Pt was traveling on his way to [facility]. Pt has a history of schizophrenia, and fibromyalgia. Assessment What has happened this shift: Patient sleeping at shift change, but awakens shortly thereafter. Patient requests his meds at 0700. Patient was given his medications first this morning. Patient frequently requests prns during the day: Ativan, Nicotine dg., Zyprexa 10 mg. Patient appears to be med seeking. He is to be discharged tonight at 23:20 to catch bus to [place] at 23:40. Patient reports that he hears "voices" but it is just "commotion" when he is asked directly. S/I, H/I: Denies A/VH: Hearing commotion. Sleep: 10 hrs NOC, napped after breakfast and lunch. ADL's: Independent Group attendance: No Were Meds taken: Yes Any med S/E: None Mental Status Exam Appearance: Disheveled male in casual clothing. Eye contact: Fair Behavior: Cooperative, anxious, guarded. Med seeking. Speech: WNL Mood: Euthymic. Affect: Constricted Thought process: Poverty of thought Thought Content: A/H and paranoid delusions Cognition: A&O X4 Insight: Poor Judgment: Poor Interventions PRN's used: Ativan x 2, Motrin, Zyprexa, and Nicotine Lozenge Therapeutic interventions: provided therapeutic communication with active listening, medication administration/education/monitoring, encouraged pt to discuss "voices" with his doctor, maintained Q 15min safety checks. Restraints/seclusion/emergency medication: N/A Justification of Continued Inpatient Treatment: Patient will be discharged tonight and he has a bus to catch at 23:40. Patient will stay here until 23:20 when discharged.
[2020-08-09] MEDS: traZODone 50mg tablet PO PRN (20:00)
[2020-08-09] MEDS: olanzapine 10mg tablet PO SCH (20:02)
[2020-08-09 20:49] VITALS: BP 121/79
--- NOTE | 2020-08-09 21:41 | NUR ---
Nursing Progress Note: Legal hold: VOL Report received from nurse, DIDIER Lund with use of SBAR Why are they here: [facility] on [facility]150 for DTS at 1555 from [facility]. Pt overdosed on Klonopin so that he could and not have to deal with things anymore. Pt complains of voices and audio hallucinations. Pt was traveling on his way to [facility]. Pt has a history of schizophrenia, and fibromyalgia. Assessment What has happened this shift: Patient was awake in his room at shift change stating that he is anxious to d/c this shift. He ate snack in group room and was med compliant just waiting for d/c and catch his bus. S/I, H/I: Denies A/VH: Hearing commotion. Sleep: 10 hrs NOC, napped after breakfast and lunch. ADL's: Independent Group attendance: No Were Meds taken: Yes Any med S/E: None Mental Status Exam Appearance: Disheveled male in casual clothing. Eye contact: Fair Behavior: Cooperative, anxious, guarded. Med seeking. Speech: WNL Mood: Euthymic. Affect: Constricted Thought process: Poverty of thought Thought Content: A/H and paranoid delusions Cognition: A&O X4 Insight: Poor Judgment: Poor Interventions PRN's used: Nicotine Lozenge Therapeutic interventions: provided therapeutic communication with active listening, medication administration/education/monitoring, encouraged pt to discuss "voices" with his doctor, maintained Q 15min safety checks. Restraints/seclusion/emergency medication: N/A Justification of Continued Inpatient Treatment: Patient will be discharged tonight and he has a bus to catch at 23:40. Patient will stay here until 23:20 when discharged.
--- NOTE | 2020-08-09 22:01 | NUR ---
Pt is discharged at this time, all belongings were returned, prescriptions given to patient, bus ticket given to patient, [employer] called to transport patient to bus station. Pt signed discharge instructions and denied any questions.
== END 2020-08-09 22:00 | disposition home or self-care (01) | DRG 750 ==
LOC: EEVIPCON → ADULT MH 15:04
PROVIDERS: ADMIT Psychiatry & Neurology Psychiatry; ATTEND Psychiatry & Neurology Psychiatry
DX: F25.1 Schizoaffective disorder, depressive type (principal); M79.7 Fibromyalgia; F10.231 Alcohol dependence with withdrawal delirium; I10 Essential (primary) hypertension; F17.210 Nicotine dependence, cigarettes, uncomplicated; M85.80 Other specified disorders of bone density and structure, unspecified site; Z88.8 Allergy status to other drugs, medicaments and biological substances; Z79.899 Other long term (current) drug therapy
CPT/HCPCS: 36415; 80061; 83036; 87081